=== PATIENT | female | born 1930 | race African-American/Black ===

== ENCOUNTER 2016-09-23 11:58 | Emergency (ER) | payer MEDICARE, MEDICAID ==
[2016-09-23] MEDS ORDERED: NORMAL SALINE 500 ML IV ONE ×2 (13:26→14:28)
[2016-09-23 14:03] LABS: HEMOGLOBIN 13.1 g/dL (12.0-15.5); MEAN CORPUSCULAR HEMOGLOBIN 29.8 pg (27.0-33.4); MEAN CORPUSCULAR VOLUME 91 fl (80-97)
[2016-09-23 14:09] LABS: ABSOLUTE LYMPHOCYTES (AUTO) 0.7 10^3/uL (0.5-4.7); ABSOLUTE MONOCYTES (AUTO) 0.4 10^3/uL (0.1-1.4); ABSOLUTE NEUT (AUTO) 8.7 10^3/uL (1.7-8.2); BASOPHILS % (AUTO) 0.3 % (0-2); EOSINOPHILS % (AUTO) 0.3 % (0-6); HEMATOCRIT 40.1 % (36.0-47.0); HGB HCT DIFFERENCE -0.8; LYMPHOCYTES % (AUTO) 7.4 % (13-45); MEAN CORPUSCULAR HGB CONC 32.7 g/dL (32.0-36.0); MONOCYTES % (AUTO) 4.1 % (3-13); RED CELL DISTRIBUTION WIDTH 14.5 % (11.5-14.0); SEGMENTED NEUTROPHILS % (AUTO) 87.9 % (42-78); WHITE BLOOD COUNT 9.9 10^3/uL (4.0-10.5)
[2016-09-23 14:21] LABS: BLOOD UREA NITROGEN 17 mg/dL (7-20); CALCIUM 9.7 mg/dL (8.4-10.2); CARBON DIOXIDE 25 mmol/L (22-30); CHLORIDE 104 mmol/L (98-107); GLUCOSE 95 mg/dL (75-110); POTASSIUM 4.9 mmol/L (3.6-5.0); SODIUM 142.2 mmol/L (137-145)
[2016-09-23 14:22] LABS: ALANINE AMINOTRANSFERASE 23 U/L (9-52); ALBUMIN 4.7 g/dL (3.5-5.0); ALKALINE PHOSPHATASE 81 U/L (38-126); ANION GAP 13 (5-19); ASPARTATE AMINO TRANSFERASE 26 U/L (14-36); BILIRUBIN,DIRECT 0.4 mg/dL (0.0-0.4); BILIRUBIN,TOTAL 0.6 mg/dL (0.2-1.3); CREATINE KINASE 80 U/L (30-135); LIPASE 191.4 U/L (23-300); TOTAL PROTEIN 8.8 g/dL (6.3-8.2)
--- NOTE | 2016-09-23 14:28 | RADIOLOGY REPORT (SQ) ---
EXAM DESCRIPTION: CHEST SINGLE VIEW COMPLETED DATE/TIME: 09/23/2016 1:58 pm REASON FOR STUDY: syncope COMPARISON: 07/28/2011 EXAM PARAMETERS: NUMBER OF VIEWS: One view. TECHNIQUE: Single frontal radiographic view of the chest acquired. RADIATION DOSE: NA LIMITATIONS: None. FINDINGS: LUNGS AND PLEURA: No opacities, masses or pneumothorax. No pleural effusion. MEDIASTINUM AND HILAR STRUCTURES: No masses. Contour normal. HEART AND VASCULAR STRUCTURES: Heart normal in size. Normal vasculature. BONES: No acute findings. HARDWARE: None in the chest. OTHER: No other significant finding. IMPRESSION: NO ACUTE RADIOGRAPHIC FINDING IN THE CHEST. TECHNICAL DOCUMENTATION: JOB ID: [id number]
[2016-09-23 14:32] LABS: CREATINE KINASE MB 0.69 ng/mL (<4.55); TROPONIN I 0.013 ng/mL
--- NOTE | 2016-09-23 15:11 | ER Document Report ---
ED General - General Chief Complaint: Syncope Stated Complaint: POSSIBLE SYNCOPE Time Seen by Provider: 09/23/16 12:04 - HPI Patient complains to provider of: Possible syncope Notes: [facility] for possible syncopal episode. Patient has a history of Alzheimer's dementia most of the HPI is obtained from family members to arrive later. According to the son who was with the patient at that time he was putting on her new shoes when the patient became unresponsive slumping over. This lasted for approximately 2 minutes by evaluation of this time patient has no complaints denies head pain chest pain abdominal pain. Denies any fever chills nausea vomiting diarrhea dysuria. Patient states she is hungry and would like to go home at this time. Patient is in no signs of obvious distress. According to family members patient has had multiple episodes like this before in the past with negative workups Past Medical History - Social History Smoking Status: Unknown if Ever Smoked Family History: Reviewed & Not Pertinent Review of Systems - Review of Systems Constitutional: No symptoms reported EENT: No symptoms reported Cardiovascular: Syncope Respiratory: No symptoms reported Gastrointestinal: No symptoms reported Genitourinary: No symptoms reported Female Genitourinary: No symptoms reported Musculoskeletal: No symptoms reported Skin: No symptoms reported Hematologic/Lymphatic: No symptoms reported Neurological/Psychological: No symptoms reported Physical Exam - Vital signs Vitals: Resp BP 16 182/89 H 09/23/16 12:23 09/23/16 12:23 Interpretation: Normal - General General appearance: Appears well, Alert - HEENT Head: Normocephalic, Atraumatic Eyes: Normal Pupils: PERRL - Respiratory Respiratory status: No respiratory distress Chest status: Nontender Breath sounds: Normal Chest palpation: Normal - Cardiovascular Rhythm: Regular Heart sounds: Normal auscultation Murmur: No - Abdominal Inspection: Normal Distension: No distension Bowel sounds: Normal Tenderness: Nontender Organomegaly: No organomegaly - Back Back: Normal, Nontender - Extremities General upper extremity: Normal inspection, Nontender, Normal color, Normal ROM , Normal temperature General lower extremity: Normal inspection, Nontender, Normal color, Normal ROM , Normal temperature, Normal weight bearing. No: Manjinder's sign - Neurological Neuro grossly intact: Yes Cognition: Normal Orientation: AAOx4 [place] Coma Scale Eye Opening: Spontaneous [place]a Coma Scale Verbal: Oriented [place] Coma Scale Motor: Obeys Commands [place] Coma Scale Total: 15 Speech: Normal Motor strength normal: LUE, RUE, LLE, RLE Sensory: Normal - Psychological Associated symptoms: Normal affect, Normal mood - Skin Skin Temperature: Warm Skin Moisture: Dry Skin Color: Normal Course - Re-evaluation Re-evalutation: 09/23/16 15:08 Patient coming in for evaluation of possible syncope. Patient able ambulate to bedside commode orthostatics were also negative. Patient was given IV fluids here laboratory studies showed no significant pathology. At this time patient remains a symptomatic right the patient discharged back [facility]. - Vital Signs Vital signs: Temp Pulse Resp BP Pulse Ox 98.4 F 60 16 189/91 H 95 09/23/16 12:24 09/23/16 12:24 09/23/16 14:52 09/23/16 14:52 09/23/16 14:16 - Laboratory Result Diagrams: 09/23/16 13:49 09/23/16 13:49 Laboratory results interpreted by me: 09/23/16 09/23/16 13:49 13:49 RDW 14.5 H Seg Neutrophils % 87.9 H Lymphocytes % 7.4 L Absolute Neutrophils 8.7 H Total Protein 8.8 H Discharge - Discharge Clinical Impression: Possible syncope Condition: Good Instructions: Syncopal Episode ([facility]) Additional Instructions: Patient was seen and evaluated for a possible syncopal episode. Patient cardiac enzymes chest x-ray basic laboratory studies do not show any critical pathology at this time. Recommend patient continue with her medications as prescribed please encouraged the patient to drink plenty water to stay hydrated and this may be the etiology of her episode today. Have patient follow-up with her primary care physician in 1-2 days Referrals: DOMENICA BARTON MD [Primary Care Provider] - Follow up as needed
[2016-09-23 16:06] VITALS: BP 160/53
--- NOTE | 2016-09-24 10:42 | EKG REPORT ---
SEVERITY:- ABNORMAL ECG - SINUS RHYTHM PROBABLE LEFT ATRIAL ABNORMALITY LEFT VENTRICULAR HYPERTROPHY CONSIDER ANTERIOR INFARCT : Confirmed by: Cassi Cheney MD 24-Sep-2016 10:42:21
== END 2016-09-23 16:02 | disposition home or self-care (01) ==
LOC: ER 11:58
DX: R55 Syncope and collapse (principal); G30.9 Alzheimer's disease, unspecified; F02.80 Dementia in other diseases classified elsewhere, unspecified severity, without behavioral disturbance, psychotic disturbance, mood disturbance, and anxiety
CPT/HCPCS: 93005; 99285; 96360; 96361; 36415; 82553; 82550; 83690; 85025; 80053; 84484; 71010; 93010; J7040

== ENCOUNTER 2017-08-08 17:39 | Emergency (ER) | payer MEDICARE, MEDICAID ==
--- NOTE | 2017-08-08 18:27 | ER Document Report ---
ED General - General Chief Complaint: Back Pain Stated Complaint: BACK PAIN Time Seen by Provider: 08/08/17 18:02 Mode of Arrival: Medic Information source: Patient, Relative, Outside Facility Records Notes: 87-year-old female with a history of Alzheimer's, hypertension presents via EMS from [facility] with no complaints. EMS reports that nursing facility told them that the patient was crying, complaining of back pain. Son and daughter-in -law are at the bedside and states that they received a phone call that the patient was complaining of back pain. Upon arrival patient is alert and oriented 2 which is her baseline. She denies any physical complaints. She denies headache, visual changes, nausea, chest pain, shortness of breath, abdominal pain, back pain, weakness, dysuria. Son states that she had a family member visit her yesterday and she often becomes depressed when they leave. TRAVEL OUTSIDE OF THE [place] IN LAST 30 DAYS: No - HPI Quality of pain: No pain Past Medical History - General Information source: Patient, Relative, [facility] Records - Social History Smoking Status: Former Smoker Frequency of alcohol use: None Drug Abuse: None Lives with: Assisted Family History: Reviewed & Not Pertinent - Past Medical History Cardiac Medical History: Reports: Hx Hypertension Psychiatric Medical History: Reports: None, Other - Alzheimer's dementia Review of Systems - Review of Systems Notes: Patient denies fever, chills, nausea, vomiting, headache, ear pain, sore throat , cough, chest pain, shortness of breath, abdominal pain, back pain, dysuria, hematuria, rash, SI/HI. Physical Exam - Notes Notes: PHYSICAL EXAMINATION: GENERAL: Well-appearing, well-nourished and in no acute distress. HEAD: Atraumatic, normocephalic. EYES: Pupils equal round and reactive to light, extraocular movements intact, conjunctiva are normal. ENT: Nares patent, oropharynx clear without exudates. Moist mucous membranes. NECK: Normal range of motion, supple without lymphadenopathy LUNGS: Breath sounds clear to auscultation bilaterally and equal. No wheezes rales or rhonchi. HEART: Regular rate and rhythm without murmurs ABDOMEN: Soft, nontender, nondistended abdomen. No guarding, no rebound. No masses appreciated. Female : deferred Musculoskeletal: Normal range of motion, no pitting or edema. No cyanosis. NEUROLOGICAL: Cranial nerves grossly intact. Normal speech, normal gait. Normal sensory, motor exams PSYCH: Normal mood, normal affect. SKIN: Warm, Dry, normal turgor, no rashes or lesions noted. Course - Re-evaluation Re-evalutation: 08/08/17 18:32 87-year-old female presents for [facility] with no complaints. EMS reports that nursing facility informed and the patient was crying and complaining of back pain. Patient was seen by myself upon arrival. Vital signs were reviewed. Patient does not appear toxic or dehydrated. They are in no acute distress. Previous medical records and nursing notes reviewed. Patient continuously denies any physical complaints. Family is at the bedside and is comfortable with discharge home. They are confused of why the patient was sent here. Patient has a normal physical exam and ambulates without difficulty. Patient will be discharged home in stable condition. Patient provided the opportunity to ask questions, and express concerns. Discharge instructions discussed. Patient is agreeable with discharge home. Return indications explained and discussed with the patient who displays understanding. Patient encouraged to return to the emergency department immediately with any concerns. Discharge - Discharge Clinical Impression: Well adult health check Condition: Good Disposition: SNF-Other Instructions: Normal Exam and Workup ([facility]) Additional Instructions: Follow up with your physician tomorrow for further care or return to the ED IMMEDIATELY if symptoms worsen or new concerns occur. If you cannot afford to follow up with your primary care physician a list of low cost clinics have been provided at the end of your discharge papers as well.
[2017-08-08 18:38] VITALS: BP 159/77
== END 2017-08-08 18:35 ==
LOC: ER 17:39
DX: M54.9 Dorsalgia, unspecified (principal); G30.9 Alzheimer's disease, unspecified; F02.80 Dementia in other diseases classified elsewhere, unspecified severity, without behavioral disturbance, psychotic disturbance, mood disturbance, and anxiety; I10 Essential (primary) hypertension; Z87.891 Personal history of nicotine dependence
CPT/HCPCS: 99283